=== PATIENT | female | born 2000 | race Caucasian/White ===

== ENCOUNTER → 2022-02-16 01:05 | Observation (INO) ==
[2022-02-15 23:43] LABS: Bilirubin,Urine Negative (Negative); Blood,Urine Negative (Negative); Clarity,Urine Clear (Clear); Color,Urine Colorless (Yellow); Glucose,Urine (UA) Normal (Normal); Ketones,Urine Negative (Negative); Leukocyte Esterase,Urine Negative (Negative); Nitrite,Urine Negative (Negative); PH,Urine 6.5 pH Units (5.0-8.0); Protein,Urine Negative (Neg-Trace); Specific Gravity,Urine 1.008 (1.010-1.025); Urobilinogen,Urine Normal (Normal)
== END | disposition home or self-care (01) ==
LOC: 1NENULAB
PROVIDERS: ADMIT Advanced Practice Midwife; ATTEND Advanced Practice Midwife

== ENCOUNTER 2022-03-14 17:18 | Inpatient (IN) ==
[2022-03-14 16:46] LABS: Basophils % 0.3 %; Eosinophils % 0.2 %; Hematocrit 36.9 % (35.3-44.9); Hemoglobin 12.3 g/dL (11.5-15.4); Immature Granulocytes % 0.8 % (0-4); Lymphocytes # 1.8 K/mcL (0.6-4.6); Mean Corpuscular HGB Conc 33.3 g/dL (31.6-35.5); Mean Corpuscular Hemoglobin 28.1 pg (28.0-33.3); Mean Corpuscular Volume 84.4 fL (83.0-100.0); Mean Platelet Volume 11.8 fL (9.4-12.4); Monocytes % 8.1 %; Neutrophils # 9.1 K/mcL (1.6-8.9); Platelet Count 214 K/mcL (140-400); Red Blood Count 4.37 M/mcL (3.82-4.97); Red Cell Distribution Width 12.2 % (11.5-14.5); Segmented Neutrophils % 75.6 %
[~2022-03-14 17:18] MED LIST: *HR* Labetalol 20 MG/4 ML SYRINGE IVP PRN; *HR* Nalbuphine 10 MG/ML AMPUL IV PRN; Azithromycin 500 MG in 0.9 % Sodium Chloride 250 ML IVPB PRN; Famotidine 20 MG/2 ML VIAL IVP PRN; Lidocaine 1% 20 ML MDV INFILT PRN; Metoclopramide 10 MG/2 ML VIAL IVP PRN; Naloxone 0.4 MG/ML INJ IVP PRN; Ondansetron 4 MG/2 ML VIAL IVP PRN
[2022-03-14 17:20] LABS: Alanine Aminotransferase 13 Units/L (7-52); Aspartate Amino Transferase 19 Units/L (13-39); BUN/Creatinine Ratio 12 (6-26); Blood Urea Nitrogen 8 mg/dL (6-20); Lactate Dehydrogenase 202 Units/L (140-271); Uric Acid 4.8 mg/dL (2.3-7.6); eGFR For African Americans > 60 (> 60); eGFR For Non-African Americans > 60 (> 60)
[2022-03-14 17:37] LABS: Creatinine,Urine 31 mg/dL; Protein/Creatinine Ratio,Urine 1.16 mg/mg (0.00-0.20)
[2022-03-14 18:20] LABS: Mucus,Urine Few per lpf (None-Few); RBC,Urine 0-3 per hpf (0-3); Squamous Epithelial Cell,Urine Few per hpf (None-Few); WBC,Urine 0-3 per hpf (0-3)
[2022-03-14 18:22] LABS: Bilirubin,Urine Negative (Negative); Blood,Urine Negative (Negative); Clarity,Urine Clear (Clear); Color,Urine Colorless (Yellow); Glucose,Urine (UA) Normal (Normal); Ketones,Urine Negative (Negative); Leukocyte Esterase,Urine Negative (Negative); Nitrite,Urine Negative (Negative); Protein,Urine 30 mg/dL (Neg-Trace); Specific Gravity,Urine 1.006 (1.010-1.025); Urobilinogen,Urine Normal (Normal)
[2022-03-14 19:04] LABS: Influenza A PCR Negative (Negative); Influenza B PCR Negative (Negative); Resp. Syncytial Virus PCR Negative (Negative); SARS-CoV-2 by PCR (In House) Negative (Negative)
[2022-03-14] MEDS: Ringers Solution, Lactated 1,000 ML IVC SCH (19:27)
[2022-03-14] MEDS: miSOPROStoL 25 MCG TABLET PO PRN (19:32)
[2022-03-14] MEDS ORDERED: *HR* FentaNYL (PF) 100 MCG/2 ML VIAL EP ONE (19:48)
[2022-03-14] MEDS ORDERED: Naloxone 0.4 MG/ML INJ IVP PRN (19:48)
[2022-03-14] MEDS ORDERED: EPHEDrine 50 MG/ML VIAL IVP PRN (19:48)
[2022-03-14] MEDS ORDERED: Ropivacaine/PF 0.2% 20 ML VIAL EP ONE (19:48)
[2022-03-14] MEDS ORDERED: Ondansetron 4 MG/2 ML VIAL IVP PRN (19:48)
[2022-03-14 19:51] LABS: Amphetamine Screen,Urine Negative ng/mL (Cutoff=1000); Barbiturate Screen,Urine Negative ng/mL (Cutoff=200); Benzodiazepines Screen,Urine Negative ng/mL (Cutoff=200); Cannabinoid Screen,Urine Negative ng/mL (Cutoff = 50); Cocaine Screen,Urine Negative ng/mL (Cutoff= 300); Opiate Screen,Urine Negative ng/mL (Cutoff=300); Phencyclidine Screen,Urine Negative ng/mL (Cutoff=25)
[2022-03-14] MEDS ORDERED: Epidural Premix (fent/bupiv) 110 ML EP SCH (20:00)
[2022-03-14] MEDS ORDERED: Calcium Gluconate 1,000 MG/10 ML VIAL IVP PRN (23:16)
[2022-03-14] MEDS ORDERED: Magnesium Sulf 20 gm/SW 500mL 4 GM/100 ML BAG IV ONE (23:16)
[2022-03-15] MEDS: Magnesium Sulf 20 gm/SW 500mL 20 GM/500 ML IV.SOLN IVC SCH ×3 (00:15→20:07)
[2022-03-15] MEDS: miSOPROStoL 25 MCG TABLET PO PRN (00:23)
[2022-03-15] MEDS ORDERED: Oxytocin 30 UNIT/503 ML BAG IVC SCH (04:15)
[2022-03-15] MEDS: Acetaminophen 325 MG TABLET PO PRN ×2 (04:52→12:46)
[2022-03-15] MEDS: Ringers Solution, Lactated 1,000 ML IVC SCH (05:58)
[2022-03-15] MEDS ORDERED: OXYTOCIN/RINGERS LACTATE 10 UNIT/166.6 ML BAG IVC ONE (15:35)
[2022-03-15] MEDS ORDERED: Ondansetron ODT 4 MG TAB.RAPDIS SL PRN (15:35)
[2022-03-15] MEDS ORDERED: Rho Immune Globulin 1,500 UNIT SYRINGE IM PRN (15:35)
[2022-03-15] MEDS ORDERED: Lanolin 7 G OINT...G. TP PRN (15:35)
[2022-03-15] MEDS ORDERED: Benzocaine/Menthol 56 GM AEROSOL SPRAY TP PRN (15:35)
[2022-03-15] MEDS ORDERED: Measles/Mumps/Rubella Vacc 0.5 ML VIAL SQ PRN (15:35)
[2022-03-15] MEDS: Ibuprofen 600 MG TABLET PO SCH ×2 (16:21→21:49)
[2022-03-15] MEDS ORDERED: Ringers Solution, Lactated 1,000 ML ONE (17:09)
[2022-03-15] MEDS ORDERED: Ringers Solution, Lactated 1,000 ML IVC SCH (17:15)
[2022-03-15] MEDS ORDERED: Calcium Gluconate 1,000 MG/10 ML VIAL ONE (17:40)
[2022-03-15] MEDS: Acetaminophen 325 MG TABLET PO SCH (21:49)
[2022-03-16] MEDS: Ibuprofen 600 MG TABLET PO SCH ×4 (04:00→23:57)
[2022-03-16] MEDS: Acetaminophen 325 MG TABLET PO SCH ×4 (04:01→23:57)
[2022-03-16] MEDS: Magnesium Sulf 20 gm/SW 500mL 20 GM/500 ML IV.SOLN IVC SCH (05:19)
[2022-03-16 05:45] LABS: Basophils % 0.2 %; Eosinophils % 0.2 %; Hematocrit 27.7 % (35.3-44.9); Immature Granulocytes % 0.6 % (0-4); Lymphocytes % 16.1 %; Mean Corpuscular HGB Conc 33.6 g/dL (31.6-35.5); Mean Corpuscular Hemoglobin 28.7 pg (28.0-33.3); Mean Corpuscular Volume 85.5 fL (83.0-100.0); Mean Platelet Volume 12.2 fL (9.4-12.4); Monocytes % 7.8 %; Neutrophils # 9.1 K/mcL (1.6-8.9); Platelet Count 201 K/mcL (140-400); Red Blood Count 3.24 M/mcL (3.82-4.97); Red Cell Distribution Width 12.8 % (11.5-14.5); Segmented Neutrophils % 75.1 %; White Blood Count 12.2 K/mcL (4.3-11.1)
[2022-03-16 05:49] LABS: Hemoglobin 9.3 g/dL (11.5-15.4)
[2022-03-16] MEDS: Prenatal Vit/FA 1 EACH TABLET PO SCH (08:11)
[2022-03-17] MEDS ORDERED: NIFEdipine XL (24 HR) 30 MG TAB.ER.24 PO SCH (02:54)
[2022-03-17 05:58] VITALS: O2SAT 100
[2022-03-17] MEDS: Ibuprofen 600 MG TABLET PO SCH (06:04)
[2022-03-17] MEDS: Acetaminophen 325 MG TABLET PO SCH (06:04)
[2022-03-17 07:36] VITALS: BP 125/80; PULSE 98; TEMP 98.4
[2022-03-17] MEDS: Prenatal Vit/FA 1 EACH TABLET PO SCH (09:39)
== END 2022-03-17 11:57 | disposition home or self-care (01) | DRG 560 ==
LOC: 1NENULAB → 1NENUOBS 03-15 15:19
PROVIDERS: ADMIT Advanced Practice Midwife; ATTEND Advanced Practice Midwife